=== PATIENT | female | born 1965 | race Caucasian/White ===

== ENCOUNTER → 2016-05-10 | Outpatient (CLI) | payer BC ==
--- NOTE | 2016-05-10 19:23 | MA ---
Screening Digital Mammogram Clinical Indications: Routine screening. Technique: Standard cephalocaudal and mediolateral oblique projections are obtained. This examinati on was processed by the [employer] computer-aided detection system. Comparison: February 13, 2014, February 20, 2013, January 27, 2012. Breast density: 3; 50 to 75%. Findings: CAD was reviewed. Possible new developing mass, lateral right breast at the 9:00 position. Recommend spot compression mammograms and possible sonography for further characterization. Left breast appears benign and unchanged. Impression: Possible new mass, lateral right breast. Requires additional imaging evaluation. BI-RADS 0. Recommendation: Additional mammographic views and possible sonography, right breast. [facility] will send a result letter to the patient. Negative mammography should not preclude additional workup of a clinically suspicious finding. The patient's information is entered into a reminder system with a target due date for her next mammo gram.
== END ==
LOC: CIMAGING 09:39
DX: Z12.31 Encounter for screening mammogram for malignant neoplasm of breast (principal); N63 Unspecified lump in breast
CPT/HCPCS: G0202

== ENCOUNTER → 2016-05-23 | Outpatient (CLI) | payer BC ==
--- NOTE | 2016-05-23 13:19 | MA ---
Diagnostic Digital Right Mammography Clinical History: 51-year-old female noted to have some parenchymal asymmetry possibly developing in the posterolateral right breast on recent screening mammography. The patient's mother had breast canc er at age 42. Technique: Digital spot compression craniocaudal and MLO views as well as a true mediolateral view of the right breast was obtained and compared to previous studies dated February 13, 2014, February 20 013, January 27, 2012, November 16, 2010, and October 14, 2009. Additionally, this examination was processed by the [employer] computer-aided detection system. Breast Density: Type C. CAD Evaluation: Reviewed. Findings: The recently-questioned area of parenchymal asymmetry does not persist with spot compressio n, and appears to have been related to superimposition of normal fibroglandular structures. The appea alejandra is unchanged from multiple preceding older studies. Impression: Benign mammography. BI-RADS Category 2. Recommendation: Routine annual mammographic screening. [facility] will send a result letter to the patient. Negative mammography should not preclude additional workup of a clinically suspicious finding. The patients information is entered into a reminder system with a target due date for her next mammog beryl.
== END ==
LOC: CIMAGING 12:48
DX: Z12.39 Encounter for other screening for malignant neoplasm of breast (principal); R92.2 Inconclusive mammogram
CPT/HCPCS: G0206

== ENCOUNTER 2017-02-17 17:44 | Emergency (ER) | payer BC | END 2017-02-17 17:45 | disposition left against medical advice (07) | LOC: CED 17:44 | DX: Z53.21 Procedure and treatment not carried out due to patient leaving prior to being seen by health care provider (principal) ==

== ENCOUNTER → 2017-06-06 | Outpatient (CLI) | payer BC | LOC: FIMAGING 09:30 | PROVIDERS: ATTEND Obstetrics & Gynecology | DX: Z12.31 Encounter for screening mammogram for malignant neoplasm of breast (principal); Z80.3 Family history of malignant neoplasm of breast ==

== ENCOUNTER → 2018-06-13 | Outpatient (CLI) | payer BC | LOC: CIMAGING 10:25 | PROVIDERS: ATTEND Obstetrics & Gynecology | DX: Z12.31 Encounter for screening mammogram for malignant neoplasm of breast (principal) ==